=== PATIENT | male | born 1985 | race Caucasian/White ===

== ENCOUNTER → 2020-09-21 10:30 | Outpatient (BNVA) | payer OTHER, SELFPAY | PROVIDERS: Visit Provider Physician Assistant Medical | DX: S81.852A Open bite, left lower leg, initial encounter (principal); W54.0XXA Bitten by dog, initial encounter | CPT/HCPCS: 90715; 99203 ==

== ENCOUNTER → 2020-09-24 14:31 | Outpatient (BNVA) | payer OTHER, SELFPAY | PROVIDERS: Visit Provider Physician Assistant | DX: S81.852A Open bite, left lower leg, initial encounter (principal); W54.0XXA Bitten by dog, initial encounter | CPT/HCPCS: 99213 ==

== ENCOUNTER 2021-01-28 09:06 | Outpatient (REF) | payer OTHER, SELFPAY | END 2021-01-28 09:07 | disposition home or self-care (01) | LOC: HO.LAB 09:06 | PROVIDERS: PCP Internal Medicine; Visit Provider Internal Medicine | DX: Z20.822 Contact with and (suspected) exposure to COVID-19 (principal) | CPT/HCPCS: C9803; U0003; U0005 ==